=== PATIENT | female | born 1980 | race Caucasian/White ===

== ENCOUNTER 2022-07-03 17:41 | Inpatient (IN) | payer OTHER, SELFPAY ==
[~2022-07-03 17:41] MED LIST: Bupivacaine/Epinephrine 0.25% 30 ML VIAL ONE; ePHEDrine 50 MG/ML VIAL ONE
[2022-07-03] MEDS ORDERED: Promethazine HCl 25 MG/ML VIAL IM PRN (18:11)
[2022-07-03] MEDS ORDERED: Acetaminophen 500 MG TAB PO PRN (18:11)
[2022-07-03] MEDS ORDERED: Ondansetron PF 4 MG/2 ML Vial IVP PRN (18:11)
[2022-07-03] MEDS ORDERED: Butorphanol Tartrate 1 MG/ML VIAL SLOW IVP PRN (18:11)
[2022-07-03] MEDS ORDERED: hydrALAZINE 20 MG/ML VIAL SLOW IVP PRN (18:11)
[2022-07-03] MEDS ORDERED: Lactated Ringer's 1,000 ML IV SCH (18:15)
[2022-07-03] MEDS ORDERED: NS w/ Oxytocin 30 units 500 ML IV SCH (18:15)
[2022-07-03 18:55] LABS: Hemoglobin 11.3 g/dL (12.0-15.5); Mean Corpuscular HGB CONC 35.6 g/dL (32.0-36.0); Mean Corpuscular Hemoglobin 30.5 pg (27.0-33.0); Mean Corpuscular Volume 85.4 fl (81.6-98.3); Mean Platelet Volume 10.8 fl (7.4-10.4); Platelet Count 229 10x3/uL (150-450); RBC Distribution Width 13.2 % (11.5-14.5); Red Blood Cell (RBC) Count 3.71 10x6/uL (3.90-5.03); White Blood Cell (WBC) Count 7.3 10x3/uL (3.5-10.5)
[2022-07-03 19:22] LABS: HBSAg Index 0.19 S/CO (0-0.99); Hep B Surf Ag - L&D Non-Reactive S/CO (NonReactive)
[2022-07-03 19:24] LABS: Syphilis Antibody Nonreactive (Nonreactive); Syphilis Antibody Index 0.08 S/CO (<1.00 Non-Reactive)
[2022-07-03] MEDS: Misoprostol 200 MCG TAB VAG SCH (20:20)
[2022-07-04] MEDS ORDERED: Misoprostol 200 MCG TAB ONE ×2 (00:04→08:37)
[2022-07-04] MEDS: Misoprostol 200 MCG TAB VAG SCH (00:04)
[2022-07-04] MEDS ORDERED: Fentanyl 100 MCG/2 ML VIAL SLOW IVP SCH (02:00)
[2022-07-04] MEDS: Misoprostol 100 MCG TAB VAG SCH ×2 (04:25)
[2022-07-04] MEDS: Fentanyl 100 MCG/2 ML VIAL SLOW IVP PRN ×2 (04:25→06:26)
[2022-07-04] MEDS ORDERED: Fentanyl 2 mcg/Bup 0.1% Cadd 100 ML ONE (06:37)
[2022-07-04] MEDS ORDERED: Promethazine HCl 25 MG/ML VIAL IM PRN ×2 (07:21→08:27)
[2022-07-04] MEDS ORDERED: diphenhydrAMINE 25 MG CAP PO PRN (07:21)
[2022-07-04] MEDS ORDERED: diphenhydrAMINE 50 MG/ML VIAL IM PRN (07:21)
[2022-07-04] MEDS ORDERED: diphenhydrAMINE 50 MG/ML VIAL IVP PRN ×2 (07:21→08:27)
[2022-07-04] MEDS ORDERED: Zolpidem Tartrate 5 MG TAB PO PRN (07:21)
[2022-07-04] MEDS ORDERED: HYDROmorphone 10 mg/100 ml CADD IVPB PRN (07:21)
[2022-07-04] MEDS ORDERED: Ondansetron PF 4 MG/2 ML Vial IVP PRN ×3 (07:21→08:27)
[2022-07-04] MEDS ORDERED: Naloxone HCl 0.4 mg/ml Vial IV PRN (07:21)
[2022-07-04] MEDS ORDERED: Ketorolac Tromethamine 30 MG/ML VIAL IVP PRN (07:26)
[2022-07-04] MEDS ORDERED: Communication Order-Pharmacy FS PRN (07:30)
[2022-07-04] MEDS ORDERED: HYDROmorphone/PF 10 MG in Sodium Chloride 0.9% 49 ML IVPB PRN ×2 (07:30→08:53)
[2022-07-04] MEDS ORDERED: Ondansetron PF 4 MG/2 ML Vial ONE (07:54)
[2022-07-04] MEDS ORDERED: Moisturizing Cream (Eucerin) 113 GM JAR TOP PRN (08:27)
[2022-07-04] MEDS ORDERED: Lactated Ringer's 500 ML IV PRN (08:27)
[2022-07-04] MEDS ORDERED: Naloxone HCl 0.4 mg/ml Vial IVP PRN ×2 (08:27)
[2022-07-04] MEDS ORDERED: ePHEDrine Sulfate 50 MG/10 ML VIAL SLOW IVP PRN (08:27)
[2022-07-04] MEDS ORDERED: Acetaminophen 325 MG TAB PO PRN (08:27)
[2022-07-04] MEDS ORDERED: Communication Order-Pharmacy FS SCH (08:30)
[2022-07-04] MEDS ORDERED: Fentanyl 2 mcg/Bupivacaine 0.1% Cassette 100 ML EPIDURAL SCH (08:30)
[2022-07-04] MEDS ORDERED: Carboprost 250 MCG/ML AMP ONE (09:29)
[2022-07-04] MEDS ORDERED: CEFAZOLIN 2 GM in Sodium Chloride 0.9% 100 ML IVPB SCH (09:45)
[2022-07-04 15:56] LABS: Hemoglobin 9.6 g/dL (12.0-15.5); Mean Corpuscular HGB CONC 35.7 g/dL (32.0-36.0); Mean Corpuscular Hemoglobin 30.8 pg (27.0-33.0); Mean Corpuscular Volume 86.2 fl (81.6-98.3); Mean Platelet Volume 10.9 fl (7.4-10.4); Platelet Count 196 10x3/uL (150-450); RBC Distribution Width 13.2 % (11.5-14.5); Red Blood Cell (RBC) Count 3.12 10x6/uL (3.90-5.03); White Blood Cell (WBC) Count 8.4 10x3/uL (3.5-10.5)
[2022-07-04] MEDS ORDERED: Misoprostol 200 MCG TAB PR SCH (18:00)
== END 2022-07-05 08:55 | disposition home or self-care (01) | DRG 779 ==
LOC: CSHLD 17:41
PROVIDERS: ADMIT Obstetrics & Gynecology; ATTEND Obstetrics & Gynecology
PROC: 10D17Z9 Manual Extraction of Products of Conception, Retained, Via Natural or Artificial Opening (ICD-10-PCS; principal; 2022-07-03)
PROC: 3E0P7VZ Introduction of Hormone into Female Reproductive, Via Natural or Artificial Opening (ICD-10-PCS; 2022-07-03)
PROC: 30233N1 Transfusion of Nonautologous Red Blood Cells into Peripheral Vein, Percutaneous Approach (ICD-10-PCS; 2022-07-03)
DX: O02.1 Missed abortion (principal); D62 Acute posthemorrhagic anemia; O04.6 Delayed or excessive hemorrhage following (induced) termination of pregnancy
CPT/HCPCS: 36415; 36430; 51702; 85027; 86780; 86850; 86900; 86901; 87340; 88300; 88305; 88309; J2405; J3010; J3490; P9016